=== PATIENT | female | born 1990 | race Caucasian/White ===

== ENCOUNTER 2023-10-12 07:51 | Outpatient (CLI) | payer BC, SELFPAY ==
[2023-10-12 19:02] LABS: Hematocrit 45.1 % (37.0-47.0); Hemoglobin 13.1 g/dL (12.0-15.0); Mean Corpuscular Hemoglobin 25.9 pg (26-34); Mean Corpuscular Volume 89.1 fl (80-100); Mean Platelet Volume 10.9 fl (7.4-10.4); Platelet Count Result 347 k/mm3 (150-375); Red Blood Count 5.06 M/mm3 (4.2-5.4); Red Cell Distribution Width 16.2 % (11.5-14.5); White Blood Count 10.6 K/mm3 (4.5-10.0)
[2023-10-12 20:12] LABS: Alanine Aminotransferase 21 U/L (6-35); Albumin Level 4.1 g/dL (3.5-5.1); Alkaline Phosphatase 110 U/L (38-126); Anion Gap 7 mmol/L (8-16); Aspartate Amino Transferase 51 U/L (14-36); Bilirubin,Total 0.4 mg/dL (0.2-1.3); Blood Urea Nitrogen 7 mg/dL (7-17); Carbon Dioxide 25 mmol/L (22-30); Chloride 107 mmol/L (98-107); Cholesterol 134 mg/dL (0-200); Estimated Glomerular Filt Rate > 60; Glucose 102 mg/dL (65-110); HDL Direct 31 mg/dL; Sodium 139 mmol/L (137-145); Triglycerides 81 mg/dL (<150)
[2023-10-12 20:23] LABS: LDL Cholesterol Direct 94 mg/dL
[2023-10-12 21:28] LABS: Hemoglobin A1C 5.6 % (<5.7)
== END 2023-10-12 07:52 | disposition home or self-care (01) ==
LOC: ANHBWCLAB 07:53
PROVIDERS: PCP Nurse Practitioner Adult Health; Visit Provider Nurse Practitioner Adult Health
DX: Z13.9 Encounter for screening, unspecified (principal); E66.9 Obesity, unspecified
CPT/HCPCS: 36415; 80053; 80061; 83036; 84443; 85027

== ENCOUNTER 2025-02-08 09:28 | Emergency (ER) | payer OTHER, SELFPAY ==
[2025-02-08 09:34] VITALS: BP 111/75; PULSE 75; RESP 18; TEMP 36.9; O2SAT 100
--- OUTSIDE RECORDS SUMMARY | 2025-02-08 09:41 | XMS_ITS ---
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 Name Role Phone Gonzales Alex Unavailable [phone] Allergies Allergen (clinical drug ingredient) Drug/Non Drug Allergy documented on EMR Reaction Allergy Type Onset Date Status codeine Codeine Unknown Drug Allergy Active Penicillin Unknown Drug Allergy Active Medications Medication SIG (Take, Route, Frequency, Duration) Notes Start Date End Date Status Carvedilol 6.25 MG 1 tablet with food O rally Twice a day Unknown PROzac 20 MG 1 capsule Orally Onc e a day Unknown buPROPion HCl ER (XL) 150 MG 1 tablet in the morning Orally Once a day Unknown Vital Signs Temperature 98.6 degrees Fahrenheit 02/02/20 25 Blood pressure systolic 130 mm Hg 02/02/20 25 Blood pressure diastolic 83 mm Hg 025 Heart Rate 76 /min 02/01/2025 Height 63 in 02/01/2025 Weight 246 lbs 02/01/2025 BMI 43.57 kg/m2 02/01/2025 Oximetry 97 % 02/01/2025 Height-cm 160.02 cm 02/01/2025 Weight-kg 111.58 kg 02/01/2025 Encounters Encounter Location Date Provider Diagnosis [facility] [address] [place], [place] [id number] 02/01/2025 Alex Gonzales Vitamin deficiency, unspecified E56.9 ; Class 3 obesity E66.813 ; Other specified personal risk factors, not elsewhere classified Z91.89 ; S/P bariatric surgery Z98.84 ; Postoperative intestinal malabsorption K91.2 and PCOS (polycystic ovarian syndrome) E28.2 Assessments Encounter Date Diagnosis (ICD Code) Assessment Notes Treatment Notes Treatment Clinical Notes Section Notes 02/01/2025 Vitamin deficiency, unspecified (ICD-10 - E56.9) 02/01/2025 Class 3 obesity (ICD-10 - E66.813) 02/01/2025 Other specified personal risk factors, not elsewhere classified (ICD-10 - Z91.89) 02/01/2025 S/P bariatric surgery (ICD-10 - Z98.84) 02/01/2025 Postoperative intestinal malabsorption (ICD-10 - K91.2) 02/01/2025 PCOS (polycystic ovarian syndrome) (ICD-10 - E28.2) Plan Of Treatment Pending Test Test Name Order Date IRON, TIBC AND FERRITIN PANEL (5616) COMPREHENSIVE METABOLIC PANEL (52348) CBC (H/H, RBC, INDICES, WBC, PLT) (1759) 02/01/2025 HEMOGLOBIN A1c (496) 02/01/2025 VITAMIN B12/FOLATE, SERUM PANEL (7065) 0 02/01/2025 TSH (899) 02/01/2025 VITAMIN D,25-OH,TOTAL,IA (71283) 025 ZINC (945) 02/01/2025 VITAMIN B1 (THIAMINE), SERUM/PLASMA, LC/ MS/MS (96328) 02/01/2025 Next Appt Details Follow Up: 3 Months, Reason: Procedure Notes * Category Sub-Category Detail Notes Post Operative Plan Education: Emphasized e xercise and activity expectations; goal of 10,000 steps/day & 150 active min/wk. Reiterated importance of drinking at least 64 oz fluid & taking in at least 60-90g protein daily: . Patient understands the rich y postop vitamin requirements: MVI, calcium + Vit D (1,500IU), folate 100mg, and any other vitamin supplements as needed based on laboratory monitoring. Reviewed appropriate eating habits and food choices: . Reminded patient that surger y is not a magic fix for weight loss: it is hard work and requires many behavioral changes to be successful. Encouraged patient follow with their PCP regularly, especially regarding medication changes: ; to see a counselor if mental health concerns arise; and continue to follow-up with bariatric slide fasteners inspector. There are no barriers to education today: . DISPOSITION: Return in: months for follo w-up visit. Patient also instructed to h jacqueline repeat labs drawn prior to next postop follow-up visit; orders placed: CBC w/diff, CMP, Vit B1, Folate, Vit B12, iron/TIBC, lipid panel, 25-Hydroxy, HbA1C, zinc. The patient is encouraged to call the clinic with any questions or concerns in the meantime. The patient demonstrates understanding and is amendable to the above outlined plan: . Progress Notes * PORFIRIO ShellieDOB: 2 (34 yo F)Acc No.[id number]:02/01/2025 Patient: Shellie HARRY Provider: Olesya Gonzales DO :1990 A ge:34 Y S ex:Female Date:02/01/2025 Address:[address] [place] [address] [id number] Subjective: * Chief Complaints: * * HPI: H istory of Present Illness: Visit: T kristel since surgery: 4 MONTHS - S urgical Procedure: R oux-en-Y Gastric Bypass D ate of Surgery: 0 09/26/2024 Interval History: T kristin patient is a f emale presenting for bariatric postoperative follow-up. Since our last follow- up, kellee curran been taking bariatric vitamins and kellee curran not had bariatric vitamin labs drawn. > INTERVAL ISSUES/CONCERNS: n one H as patient been admitted to the hospital??No H as patient undergone any post-bariatric surgical operations or interventions? N o P re-surgical Weight: 3 08 lb L ast Visit Weight: l b T TODD'S WEIGHT: 2 46 lb T otal Weight Loss (TBW): 6 2 lb % TBW Lost: 2 0.1 % > Daily fluid/water intake = 4 0-60 ounces > Protein Intake is a dequate > Physical Activity: W alking less than 10,000 steps/day COMORBIDITY EVALUATION : AMANDA No GERD No Hypertension Yes - c arvedilol (Coreg) Hyperlipidemia No Diabetes No - Prediabetes VTE No Is Patient attending any support groups E ncouraged attendance . Does patient take any medications for weight loss? - N o * ROS: G eneral / Constitutional: Chills d enies. F ever d enies. A llergy / Immunology: Blistering skin d enies. H EENT: Difficulty in swallowing d enies. N ami congestion?denies. E ndocrine: Cold intolerance d enies. E xcessive thirst d enies. R espiratory: Chest pain d enies. C ough d enies. ? C ardiovascular: Chest pain d enies. P alpitations d enies. W eakness d enies. G astrointestinal: Abdominal pain d enies. D iarrhea d enies. J aundice d enies. R ectal bleeding d enies. G enitourinary: Blood in the urine d enies. D ifficulty urinating d enies. M usculoskeletal: Limping gait d enies. W eakness d enies. B urning pain in lower legs d enies. P sychiatric: Auditory / visual hallucinations d enies. S ubstance abuse d enies. S uicidal thoughts d enies. R eview of Systems: Fever/Chills: N o. E levated HR: N o. B loating/hiccups: N o. S OB/cough/wheezing: N o. L ower extremity pain or swelling: N o.?Decreased UOP: N o. B owel function N ormal BMs without complaint. ? * Medical History: A nxiety, Depression, Prediabetes, PCOS, Hypertension, Pulmonary embolism (09/2022), Migraine headaches, Morbid obesity. * Surgical History: c esarean section , tonsillectomy-adenoidectomy , Esophagogastroduodenoscopy(EGD) w Alex Gonzales DO at [facility] 08/26/2024, Alex Gonzales DO LAPAROSCOPIC GASTRIC BYPASS 09/26/2024. * Medications: U nknown Carvedilol 6.25 MG Tablet 1 tablet with food Orally Twice a day , Unknown buPROPion HCl ER (XL) 150 MG Tablet Extended Release 24 Hour 1 tablet in the morning Orally Once a day , Unknown PROzac 20 MG Capsule 1 capsule Orally Once a day * Allergies: C odeine, Penicillin. Objective: * Vitals: W t:246, Ht:63, BMI:43.57, Oxygen sat %:97, HR:76, BP:130/83, Temp:98.6, Wt- k.58, Ht-cm:160.02, Body Surface Area:2.23. Past Vitals:* 11/24/2024 Wt:258, BMI:45.7, BP:114/81 * 10/06/2024 Wt:275, BMI:48.71, BP:111/80 * 09/01/2024 Wt:301, BMI:53.31, BP:126/71 * 09/01/2024 Wt:301, BMI:53.31, BP:126/71 * 08/03/2024 Wt:303, BMI:53.67, BP:134/82 * Examination: P hysical Exam: General: W ell-developed a dult in no acute distress Head: A traumatic, normocephalic . Neck: S upple, trachea midline. No cervical lymphadenopathy . Chest: Unlabored breathing without respiratory distress Heart: Normal rate and regular rhythm Abdomen: Soft, non-tender, Bowel sounds normal, No masses, no organomegaly Extremities: Warm and well perfused Psych G ood insight, good judgement, appropriate affect . Integumentary: W arm and dry . R eviewed any recent lab &/or imaging results w ith patient during visit today. Assessment: * Assessment: 1. C lass 3 obesity - E66.813 (Primary) 2 . V itamin deficiency, unspecified - E56.9 3 . O ther specified personal risk factors, not elsewhere classified - Z91.89 4 . S /P bariatric surgery - Z98.84 5 . P ostoperative intestinal malabsorption - K91.2 6 . P COS (polycystic ovarian syndrome) - E28.2 Plan: * Treatment: 2. O ther specified personal risk factors, not elsewhere classified L AB: IRON, TIBC AND FERRITIN PANEL (5616) L AB: COMPREHENSIVE METABOLIC PANEL (28537) L AB: CBC (H/H, RBC, INDICES, WBC, PLT) (1759) L AB: HEMOGLOBIN A1c (496) L AB: VITAMIN B12/FOLATE, SERUM PANEL (7065) L AB: TSH (899) L AB: VITAMIN D,25-OH,TOTAL,IA (58770) L AB: ZINC (945) L AB: VITAMIN B1 (THIAMINE), SERUM/PLASMA, LC/MS/MS (32209) 3. S /P bariatric surgery L AB: IRON, TIBC AND FERRITIN PANEL (5616) L AB: COMPREHENSIVE METABOLIC PANEL (28089) L AB: CBC (H/H, RBC, INDICES, WBC, PLT) (1759) L AB: HEMOGLOBIN A1c (496) L AB: VITAMIN B12/FOLATE, SERUM PANEL (7065) L AB: TSH (899) L AB: VITAMIN D,25-OH,TOTAL,IA (03240) L AB: ZINC (945) L AB: VITAMIN B1 (THIAMINE), SERUM/PLASMA, LC/MS/MS (56792) 4. P ostoperative intestinal malabsorption L AB: IRON, TIBC AND FERRITIN PANEL (5616) L AB: COMPREHENSIVE METABOLIC PANEL (44342) L AB: CBC (H/H, RBC, INDICES, WBC, PLT) (1759) L AB: HEMOGLOBIN A1c (496) L AB: VITAMIN B12/FOLATE, SERUM PANEL (7065) L AB: TSH (899) L AB: VITAMIN D,25-OH,TOTAL,IA (86047) L AB: ZINC (945) L AB: VITAMIN B1 (THIAMINE), SERUM/PLASMA, LC/MS/MS (67786) * Procedures: P ost Operative Plan: Education: E mphasized exercise and activity expectations; goal of 10,000 steps/day & 150 active min/wk. Reiterated importance of drinking at least 64 oz fluid & taking in at least 60-90g protein daily . P atient understands the daily postop vitamin requirements: MVI, calcium + Vit D (1,500IU), folate 100mg, and any other vitamin supplements as needed based on laboratory monitoring. Reviewed appropriate eating habits and food choices . R eminded patient that surgery is not a magic fix for weight loss: it is hard work and requires many behavioral changes to be successful. Encouraged patient follow with their PCP regularly, especially regarding medication changes ; t o see a counselor if mental health concerns arise; and continue to follow-up with bariatric slide fasteners inspector. There are no barriers to education today . DISPOSITION: Page calhoun in [facility] for follow-up visit. P atient also instructed to have repeat labs drawn prior to next postop follow-up visit; orders placed: CBC w/diff, CMP, Vit B1, Folate, Vit B12, iron/TIBC, lipid panel, 25-Hydroxy, HbA1C, zinc. The patient is encouraged to call the clinic with any questions or concerns in the meantime. The patient demonstrates understanding and is amendable to the above outlined plan . * Follow Up: 3 Months * Billing Information: * Visit Code: 56411 Office Visit, Est Pt., Level 4. * Procedure Codes: * Electronic signature of Cash fostermaricel Gonzales DO, [phone] on 02/08/2025 at 09:41 AM CDT Sign off status: Pending * Provider: Olesya Gonzales DO Date: 02/01/2025 Generated for Torrie sun/Ayan/Indu on: 02/08/2025 09:41 AM CDT History and Physical Notes * HPI (History of Present Illness) Category Sub-Category Detail Notes Category Not es History of Present Illness Visit: Time since surgery:: 4 MONTHS - Surgical Procedure:: Asaf-en-Y Gastric B ypass Date of Surgery:: 09/26/2024 Interval History: The patient is a: female prese ing for bariatric postoperative follow-up. Since our last follow-up, they: have been taking bariatri c vitamins and they: have not had bariatric vitami n labs drawn. > INTERVAL ISSUES/CONCERNS:: none Has patient [facility] the [facility]?: No Has patient undergone any po st-bariatric surgical operations or interventions?: No Pre-surgical Weight:: 308 lb Last Visit Weight:: lb TODAY'S WEIGHT:: 246 lb Total Weight Loss (TBW):: 62 lb %TBW Lost:: 20.1 % > Daily fluid/water intake =: 40-60 ounc es > Protein Intake is: adequate > Physical Activity:: Walkin g less than 10,000 steps/day COMORBIDITY EVALUATION : AMANDA No GERD No Hypertension Yes -: carvedilol (Coreg) Hyperlipidemia No Diabetes No - Prediabetes VTE No Is Patient attending any support groups Encourag ed attendance: . Does patient take any medications for weight los s? -: No Examination Category Sub-Category Detail Notes Category Not es Physical Exam General: Well-developed: adult in no acute distress Reviewed any recent lab &/or imaging results with patient during visit today. Chest: Unlabored breath ing without respiratory distress Abdomen: Soft, non-tender, Papito wel sounds normal, No masses, no organomegaly Extremities: Warm and well perfused Heart: Normal rate and regular rhythm Psych Good insight, good j udgement, appropriate affect: . Integumentary: Warm and dry: . Head: Atraumatic, normocephalic: . Neck: Supple, trachea midl ine. No cervical lymphadenopathy: .
--- OUTSIDE RECORDS SUMMARY | 2025-02-08 09:41 | XMS_ITS | Referral Summary ---
Author Organization [facility] Address [facility] [place] [address] Care Team Providers Care Bag Filler Machine Operator Name Role Phone Santa Mcgovern MD Primary Care Provider [phone] Allergies Active Allergy Reactions Criticality Noted Date Comments Codeine Other (See comments) Low insomnia Penicillins Shortness of breath High Medications DHA 200 mg capsule Take by mouth daily 2 Active polyethylene glycol (MIRALAX) 17 gram packetIndicatio ns:constipation Take 1 packet (17 g total) by mouth daily as needed for constipation 30 packet 1 3 Active furosemide (LASIX) 20 mg tablet Take 2 tablets (40 mg total) by mouth daily for 15 days 30 tablet 3 Active FLUoxetine (PROzac) 20 mg capsule TAKE 1 CAPSULE BY MOUTH EVERY DAY 90 capsule 1 4 Active carvediloL (COREG) 6.25 mg tablet Take 1 tablet (6.25 mg total) by mouth 2 (two) times a day with meals 60 tablet 11 4 Active Hospital, Clinic, or Other Facility Administered Medication Ordered Dose Route Frequency Start Date End Date Status etonogestreL (NEXPLANON) implant 68 mgIndications:Pregna ncy Contraception 68 mg subderm Continuous (implanted device) 03/02/2023 03/01/2026 Active Active Problems Problem Noted Date Diagnosed Date History of pre-eclampsia 11/19/2022 Anxiety and depression 11/19/2022 Cardiac risk counseling 10/22/2022 Resolved Problems Problem Noted Date Diagnosed Date Resolved Date Pre-eclampsia in third trimester 10/22/2022 11/19/2022 care following delivery 10/10/2022 11/19/2022 Overview (10/14/2022): # ID: Afebrile. No signs/symptoms of infection. #COVID-19: Test not indicated # Heme: EBL 1000 mL. No symptoms acute blood loss anemia, hgb 11.9 > 9.1 > 7.6 > 8.1 . Received IM OT, hemabate x2 and rectal miso intraop. Lochia wnl. # CV/Pulm: #Pre-eclampsia with severe features: Magnesium sulfate paused in labor given rising Cr. Trending JULIANNE below. Blood pressures normotensive to MR , will continue 60mg nifedipine XL. Enrolled in home BP monitoring. #WOODY subsegmental PE vs artifact: Remains tachycardic with significant bilateral lower extremity edema. Normal BNP and EKG. CT PE with potential subsegmental PE vs artifact. Following discussion with patient elects for treatment with therapeutic lovenox, started 10/12 PM. Dopplers without evidence of DVT. # GI/: Tolerating PO. Voiding spontaneously. #JULIANNE: Cr elevated in the setting of PreESF, peak 1.63. Cr POD3 0.86. # Pain: Controlled with above regimen. Will add gabapentin 100 mg TID for incisional neuropathic pain # Post DVT prophylaxis: The patient has the following MAJOR risk factors BMI >/= 40 and the following MINOR risk factors delivery and preeclampsia. 10/12: Started on therapeutic lovenox, plan to discharge on lovenox for total duration of therapy for 3-6 months. # MOC: Declines s/p counseling # MOF: Undecided. Urine drug screen not indicated. Patient informed of results: N/A. # COVID Vaccination Status: Previously received # Disposition: Follow up task sent to [facility] scheduling pool. Task also sent for [facility] clinic. Continue routine care. Consider discharge today. Encounter for elective induction of labor 10/08/2022 11/19/2022 Overview (10/08/2022): Shellie Gutierrez is a 32 y.o. female at 37w3d who is dated by L=1 and is being admitted for an induction of labor secondary to gHTN. 1. Admit to L&D: Consents signed and placed in chart. Labs: CBC and T&S pending. Induction of labor with miso. 2. FWB: Continuous monitoring. Reactive NST 3. ID: 3rd trimester HIV (>28 wga) negative on 10/02/22. GBS unknown, records requested but not yet visualized. Per pt, was told by her primary OB that she was GBS negative; additionally, no risk factors for GBS, will defer PCN. RPR on admission: pending. Membrane Status: intact. 4. Indications for UDS: none. Verbal consent obtained for UDS: Not indicated 5. MOF: Undecided on feeding method. Urine drug screen not indicated. Patient informed of results: N/A 6. MOC: Declines 7. Pain management: Desires epidural when feeling painful contractions. 8. Post DVT prophylaxis: The patient has the following MAJOR risk factors BMI >/= 40 and the following MINOR risk factors none. enoxaparin 40 mg BID will be ordered for VTE prophylaxis . 9. COVID Vaccine Status: Not assessed 10. COVID Test Status: Test not indicated complications: #gHTN: SRBP x1, not yet meeting criteria for preE, CBC/CMP/UPC sent on admission. Most recent labs on 10/02: UPC 0.21, CBC/CMP wnl. #MO: BMI 62 #LGA fetus: most recent Dionisio on 10/02 with fetus at 97% #anxiety: on no meds Gestational hypertension, third trimester 10/03/2022 11/19/2022 Overview (10/08/2022): Patient reports 10/01 having a severe range BP at her primary's office with a normal repeat- records requested 10/02 in clinic patient had 2 mild range Bps- sent to [facility] for r/o preE and discharged home 10/08/2022 162/84 Plan: - Instructed to present to [facility]/L&D for delivery, rule out preeclampsia Excessive growth affec ting management of in third trimester 09/02/2022 11/20/19 Overview (10/08/2022): 09/02/2022 96% 10/02/2022 97%, 3655g S/p normal 1 hour, s/p normal accu check in clinic Constipation 05/19/2022 11/19/2022 Overview (05/19/2022): Reglan, limit zofran Colace Miralax Maternal morbid obesity in t hird trimester, antepartum 05/16/2022 11/19/2022 Overview (10/08/2022): BMI 57 > 62 10/08/2022 Plan: - Serial growth ultrasounds every 4 weeks - S/p anesthesia consult 09/02/2022 - Planning delivery at [facility] for BMI >50 Maternal varicella, non-immune 05/16/2022 11/19/2022 Supervision of high-risk pre gnancy, third trimester 05/16/2022 11/19/2022 Overview (10/08/2022): [x] Co-management [x] Blue Team Email for the [employer] sent 08/07/22 Referring Provider: Dwain Muhammad [phone] [] or Medicare Insurance [x] Dating Criteria: [place] 03/03/22 with CHUY 10/26/22 [x] Labs: Rh [A+], Ab [negative], Rubella [immune], HIV [non-reactive], HepBSAg [negative], RPR [non-reactive], Hep C [negative], Varicella [non- immune], GC/CT [negative/negative] [x] Genetic Screening: CF negative [x] CBC/Hgb 13.9/40.7/plt 316 [x] UCx: 04/03/22 negative [x] Pap: 04/03/22 NILM; HPV negative [] LD ASA (if indicated) starting at 12 weeks: [] EPDS [ ]; PNBHS referral (if indicated) 2nd Tri Labs: [x] Anatomy ultrasound: incomplete 06/09/22 [x] CBC/1hr gtt at 24-28wks: CBC: 11.9/37.2/310, 1 hr gtt: 128 on 07/29/22 [x] Flu Shot (Mar-Jun): declines 08/07/22 [x] Tdap (27-36wks): cheri beal [x] COVID Vaccine: received 09/30/20 and 10/22/20, declines booster 08/07/22 3rd Tri Labs: [x] CBC/HIV/RPR: on 10/02, 11.4/35.9/297, HIV: Neg, RPR: NR [] GBS: reports collected with primary on 09/24 - not yet received records 10/08/2022 [x] testing: Recommend weekly testing at 34 weeks (prepregnancy BMI >40) Counseling [x] MOD: Anticipate at 39w0d- will discuss dates with partner and notify MFOlesya RN -scheduled for 10/19 at 8pm, letter sent - bnw [x] Place of delivery: [facility] [] Last clinic visit SVE: [] IOL start agent: [] Epidural: [] Consents signed: [] MOC: [] Method of feeding: [] Pickle Pumper: [] PP Depression Discussed: Anxiety disorder affecting p regnancy, antepartum 05/16/2022 11/19/2022 Immunizations Immunization Administration Dates Next Due Tdap 03/06/2008 Social History Tobacco Use Types Packs/Day Years Used Date Smoking Tobacco: Never Smokeless Tobacco: Never Tobacco Cessation:Counseling Given: Not Answered Alcohol Use Standard Drinks/Week Comments Yes 0 (1 standard drink = 0.6 oz pur e alcohol) Social Connection and Isolat ion Panel [NHANES] Answer Date Recorded In a typical week, how many times do you talk on the phone with family, friends, or neighbors? More than three times a week 10/13/2022 How often do you get togethe r with friends or relatives? Three times a week 10/13/2022 How often do you attend chur ch or sikh services? Never 10/13/2022 Do you belong to any clubs o r organizations such as bahai groups, unions, fraternal or athletic groups, or school groups? No 10/13/2022 How often do you attend meet ings of the clubs or organizations you belong to? Never 10/13/2022 Are you , , di vorced, , never , or living with a partner? Living with partner 10/13/2022 AUDIT-C Answer Date Recorded Q1: How often do you have a drink containing alc ohol? Monthly or less 03/02/2023 Q2: How many drinks containi ng alcohol do you have on a typical day when you are drinking? 1 or 2 03/02/2023 Frequency of Binge Drinking Not on file 02/17 Overall Financial Resource Strain (CARDIA) Answe r Date Recorded How hard is it for you to pa y for the very basics like food, housing, medical care, and heating? Not hard at all 10/13/2022 Hunger Vital Sign Answer Date Recorded Within the past 12 months, y ou worried that your food would run out before you got the money to buy more. Never true 10/14/19 23 Within the past 12 months, t he food you bought just didn't last and you didn't have money to get more. Never true 10/13/2022 PRAPARE - Transportation Answer Date Re corded In the past 12 months, has l ack of transportation kept you from medical appointments or from getting medications? No 09/18 In the past 12 months, has l ack of transportation kept you from meetings, work, or from getting things needed for daily living? No 10/13/2022 Housing Stability Vital Sign Answer Oli e Recorded In the last 12 months, was t here a time when you were not able to pay the mortgage or rent on time? No 10/13/2022 In the last 12 months, how many places have you lived? 1 10/13/2022 In the last 12 months, was t here a time when you did not have a steady place to sleep or slept in a half-way (including now)? No 10/13/2022 [place] Depression Scale Answer Date Recorded [place] Depression Scale Total 10 11/19/2022 The thought of harming myself has occurred to me . Never 11/19/2022 Personal Safety Answer Date Recorded Have you ever been in or are you currently in a harmful physical or emotional relationship or is someone making you feel afraid or unsafe? 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 - [employer] Not on file Not on f ile Not on file Last Filed Vital Signs Vital Sign Reading Time Taken Comments Blood Pressure 129/90 06/04/2023 10:34 AM CARDIAC EXERCISE SPECIALIST Pulse 116 11/19/2022 11:39 AM CDT Temperature 36.6 C (97.8 F) 11/03/2022 5:51 PM CDT Respiratory Rate 16 11/03/2022 5:51 PM CDT Oxygen Saturation 98% 11/19/2022 11:39 AM CDT Inhaled Oxygen Concentration - - Weight 142.4 kg (314 lb) 06/04/2023 10:34 AM CARDIAC EXERCISE SPECIALIST Height 162.6 cm (5' 4) 06/04/2023 10:34 AM CARDIAC EXERCISE SPECIALIST Body Mass Index 53.9 06/04/2023 10:34 AM CARDIAC EXERCISE SPECIALIST Plan of Treatment Not on file Procedures Procedure Name Priority Date/Time Associated Diagnosis Comments HEPATITIS C ANTIBODY Routine 04/03/2022 from Last 3 Months or Most Recently Relevant to Health Maintenance Results * Hepatitis C antibody (04/03/2022) SCRIBED HCV ab negative Blood Dwain Muhammad MD LAB MICROBIOLOGY - GEN ERAL ORDERABLES Final Result from Last 3 Months or Most Recently Relevant to Health Maintenance Insurance [facility] Advance Directives For more information, please contact: [phone] * Full Code (Latest Code Status on File) Date Activated Date Inactivated Comments 10/10/2022 9:05 PM 10/14/2022 4:44 PM * Full Code Date Activated Date Inactivated Comments 10/08/2022 5:27 PM 10/10/2022 9:05 PM Full CPR in case of cardiopulmonary arrest Care Teams Bag Filler Machine Operator Relationship Specialty Start Date End Date Santa Mcgovern MD PCP - General Internal Medicine 06/21/18
--- OUTSIDE RECORDS SUMMARY | 2025-02-08 09:41 | XMS_ITS ---
Author Organization [facility] Address [address] [facility] [address] [place], [place] [id number] Care Team Providers Care Brimmer Blocker Name Role Phone Alex Gonzales DO Unavailable [phone] Shell Davidson Unavailable [phone] REASON FOR VISIT told her $50 for last inserter Medications Medication SIG (Take, Route, Frequency, Duration) Notes Start Date End Date Status PROzac 20 MG 1 capsule Orally Onc e a day Unknown buPROPion HCl ER (XL) 150 MG 1 tablet in the morning Orally Once a day Unknown Carvedilol 6.25 MG 1 tablet with food O rally Twice a day Unknown Encounters Encounter Location Date Provider Diagnosis [facility] [address] [facility] [address] [place], [place] [id number] 02/01/2025 Shell Davidson Plan Of Treatment No Information Progress Notes * BARTONShellieDOB: 2 (34 yo F)Acc No.[id number]:02/01/2025 Patient: Shellie HARRY Provider: Haylie Davidson RD, LD :1990 A ge:34 Y S ex:Female Date:02/01/2025 Address:[address] [place], [place] [id number] Subjective: * Chief Complaints: * 1 . Told her $50 for last inserter. * Medical History: * Medications: U nknown Carvedilol 6.25 MG Tablet 1 tablet with food Orally Twice a day , Unknown buPROPion HCl ER (XL) 150 MG Tablet Extended Release 24 Hour 1 tablet in the morning Orally Once a day , Unknown PROzac 20 MG Capsule 1 capsule Orally Once a day Objective: * Vitals: Past Vitals:* 11/24/2024 Wt:258, BMI:45.7, BP:114/81 * 10/06/2024 Wt:275, BMI:48.71, BP:111/80 * 09/01/2024 Wt:301, BMI:53.31, BP:126/71 * 09/01/2024 Wt:301, BMI:53.31, BP:126/71 * 08/03/2024 Wt:303, BMI:53.67, BP:134/82 Assessment: Plan: * Treatment: * Billing Information: * Visit Code: * Procedure Codes: * Electronic signature of Randy Byers RD, LD on 02/08/2025 at 09:41 AM CDT Sign off status: Pending * Provider: Haylie Davidson RD, LD Date: 02/01/2025 Generated for Torrie sun/Ayan/Indu on: 02/08/2025 09:41 AM CDT
--- OUTSIDE RECORDS SUMMARY | 2025-02-08 09:41 | XMS_ITS | Clinical Summary ---
Author Organization [facility] Address [address] [place] [phone] Phone Care Team Providers Care Welding Technician Name Role Phone Unavailable Primary Care Provider Unavailabl e Allergies Active Allergy Reactions Criticality Noted Date Comments Codeine Other (See Comments) 08/09/2024 Insomnia for days Penicillins Hives High 08/09/2024 Medications FLUoxetine (PROzac) 20 mg capsule Take 20 mg by mouth daily. Active carvediloL (COREG) 6.25 mg tablet Take 6.25 mg by mouth 2 times daily. 4 Active etonogestreL (NEXPLANON) 68 mg Implant Inject 68 mg by subcutaneous injection one time only. 3 03/01/20 26 Active docusate sodium (COLACE) 100 mg capsule Take 1 Capsule (100 mg) by mouth 2 times daily. 30 Capsule 09/27/2024 10:31 AM CDT 5 Active ondansetron (ZOFRAN ODT) 4 mg Tablet, Rapid Dissolve Dissolve 1 tablet on top of tongue, then swallow with saliva every 8 hours as needed for Nausea/Vomiting. 40 Tablet 09/27/2024 10:31 AM CDT 5 Active omeprazole (PriLOSEC) 40 mg Capsule, Delayed Release(E.C.) Take 1 Capsule (40 mg) by mouth daily. Open capsule and pour contents into sugar-free jell-O or other food of similar consistency. 90 Capsule 09/27/2024 10:31 AM CDT 5 Active buPROPion (WELLBUTRIN) 75 mg tablet Take 2 Tablets (150 mg) by mouth 2 times daily. 120 Tablet 09/27/2024 10:31 AM CDT Active Active Problems Problem Noted Date Diagnosed Date Morbid obesity with BMI of 50.0-59.9, adult 09/17 Encounters Date Type Department Care Team Description 02/01/2025 External Device Data [facility] ABSTRACTION Provider, Abstract 01/31/2025 External Device Data [facility] ABSTRACTION Provider, Abstract 01/10/2025 External Device Data [facility] ABSTRACTION Provider, Abstract 01/10/2025 External Device Data [facility] ABSTRACTION Provider, Abstract 12/08/2024 External Device Data [facility] ABSTRACTION Provider, Abstract 12/08/2024 External Device Data [facility] ABSTRACTION Provider, Abstract 12/08/2024 External Device Data [facility] ABSTRACTION Provider, Abstract 12/07/2024 External Device Data [facility] ABSTRACTION Provider, Abstract 12/07/2024 External Device Data [facility] ABSTRACTION Provider, Abstract 12/06/2024 External Device Data [facility] ABSTRACTION Provider, Abstract 11/22/2024 External Device Data [facility] ABSTRACTION Provider, Abstract from Last 3 Months Family History Medical History Relation Name Comments Colon Cancer Neg Hx Social History Tobacco Use Types Packs/Day Years Used Date Smoking Tobacco: Never Smokeless Tobacco: Never Tobacco Cessation:Counseling Given: Not Answered Alcohol Use Standard Drinks/Week Comments Yes 0 (1 standard drink = 0.6 oz pur e alcohol) once a year Comments No Sex and Gender Information Value Date Recorded Sex Assigned at Not on file Legal Sex Female 8:56 AM UROLOGY PHYSICIAN Gender Identity Not on file Sexual Orientation Not on file Last Filed Vital Signs Vital Sign Reading Time Taken Comments Blood Pressure 118/67 09/27/2024 7:13 AM CDT Pulse 84 09/27/2024 7:13 AM CDT Temperature 36.7 C (98.1 F) 09/27/2024 7:13 AM CDT Respiratory Rate 18 09/27/2024 7:13 AM CDT Oxygen Saturation 94% 09/27/2024 7:13 AM CDT Inhaled Oxygen Concentration - - Weight 133.4 kg (294 lb 1.5 oz) 025 10:26 AM CDT Height 162.6 cm (5' 4) 09/26/2024 10:2 6 AM CDT Body Mass Index 50.48 09/26/2024 10:26 AM CDT Plan of Treatment Health Maintenance Due Date Last Done Comments HEPATITIS B VACCINES (1 of 3 - 19+ 3-dose series) 2011 HPV/Cotest (21-29) 2013 DTAP/TDAP/TD VACCINES (2 - T d or Tdap) 03/06/2018 03/06/2008 CERVICAL CANCER SCREENING 2022 HPV/Cotest (30-65) 2022 PAP SMEAR 2022 INFLUENZA VACCINE (#1) 2025 HPV VACCINES Aged Out No longer eligi ble based on patient's age to complete this topic Insurance [facility] [id number] [employer] PLANS (INTERNAL) [facility] Advance Directives For more information, please contact: [phone] * Full Code (Latest Code Status on File) Date Activated Date Inactivated Comments 09/26/2024 10:12 AM 09/27/2024 12:40 PM * Full Code Date Activated Date Inactivated Comments 09/26/2024 6:00 AM 09/26/2024 10:12 AM * Full Code Date Activated Date Inactivated Comments 08/26/2024 1:14 PM 08/26/2024 4:40 PM
--- OUTSIDE RECORDS SUMMARY | 2025-02-08 09:41 | XMS_ITS | Patient Health Record ---
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 Name Role Phone Alex Gonzales DO Unavailable [phone] Vinnie VILLARREAL, Dary Unavailable [phone] Baljit Dickson PA-C Unavailable Shell Davidson Unavailable [phone] Allergies Allergen (clinical drug ingredient) Drug/Non Drug Allergy documented on EMR Reaction Allergy Type Onset Date Status codeine Codeine Unknown Drug Allergy Active Penicillin Unknown Drug Allergy Active Reason For Referral No Information Medications Medication SIG (Take, Route, Frequency, Duration) Notes Start Date End Date Status Carvedilol 6.25 MG 1 tablet with food O rally Twice a day Unknown PROzac 20 MG 1 capsule Orally Onc e a day Unknown buPROPion HCl ER (XL) 150 MG 1 tablet in the morning Orally Once a day Unknown Problems Problem Type SNOMED Code ICD Code Onset Dates Problem Status W/U Status Risk Notes Problem Vitamin deficiency (73460225) Vitamin deficiency, unspecified (E56.9) Active confirmed Problem Morbid obesity (disorder) (672683055) Morbid (severe) obesity due to excess calories (E66.01) Active confirmed Problem Body mass index 40+ - morbidly obese (736090145) Body mass index [BMI] 50.0-59.9, adult (Z68.43) Active confirmed Problem Essential hypertension (56752114) Essential hypertension (I10) Active confirmed Problem Postoperative intestinal malabsorption (K91.2) Active confirmed Problem Polycystic ovary syndrome (disorder) (994558313) PCOS (polycystic ovarian syndrome) (E28.2) Active confirmed Problem History of pulmonary embolus (805118487) History of pulmonary embolus (PE) (Z86.711) Active confirmed Problem Class 3 obesity (E66.813) Active confirmed Vital Signs Heart Rate 76 /min 02/01/2025 Temperature 98.6 degrees Fahrenheit 02/01/2025 Height-cm 160.02 cm 02/01/2025 Blood pressure diastolic 83 mm Hg 02/01/2025 Oximetry 97 % 02/01/2025 Weight-kg 111.58 kg 02/01/2025 Height 63 in 02/01/2025 Blood pressure systolic 130 mm Hg 02/01/2025 Weight 246 lbs 02/01/2025 BMI 43.57 kg/m2 02/01/2025 Procedures Procedure Date Ordered Date Performed Result Body Sit e ESOPHAGOGASTRODUODENOSCOPY 08/03/2024 N/A Encounters Encounter Location Date Provider Diagnosis [facility] [address] [id number] 02/01/2025 Shell Davidson [facility] [address] [id number] 02/01/2025 Alex Gonzales Vitamin deficiency, unspecified E56.9 ; Class 3 obesity E66.813 ; Other specified personal risk factors, not elsewhere classified Z91.89 ; S/P bariatric surgery Z98.84 ; Postoperative intestinal malabsorption K91.2 and PCOS (polycystic ovarian syndrome) E28.2 [facility] [address] [id number] 08/03/2024 Alex Gonzales History of pulmonary embolus (PE) Z86.711 ; Class 3 obesity E66.813 ; Gastro-esophageal reflux disease without esophagitis K21.9 ; Prediabetes R73.03 ; PCOS (polycystic ovarian syndrome) E28.2 and BMI 50.0-59.9, adult Z68.43 [facility] [address] [id number] 08/03/2024 Dary [place] Dietary counseling and surveillance Z71.3 and BMI 50.0-59.9, adult Z68.43 [facility] [address] [id number] 09/01/2024 Baljit Dickson Class 3 obesity E66.813 ; PCOS (polycystic ovarian syndrome) E28.2 ; Essential hypertension I10 ; Chronic depression F32.A and History of pulmonary embolus (PE) Z86.711 [facility] [address] [id number] 09/01/2024 Dary [place] Dietary counseling and surveillance Z71.3 and Body mass index [BMI] 50.0-59.9, adult Z68.43 [facility] [address] [id number] 10/06/2024 Alex Gonzales S/P bariatric surger y Z98.84 ; Class 3 obesity E66.813 ; Vitamin deficiency, unspecified E56.9 ; Other specified personal risk factors, not elsewhere classified Z91.89 and Postoperative intestinal malabsorption K91.2 [facility] [address] [id number] 11/24/2024 Alex Gonzales Vitamin deficiency, unspecified E56.9 ; Obesity, Class III, BMI 40-49.9 (morbid obesity) E66.813 ; Other specified personal risk factors, not elsewhere classified Z91.89 ; S/P bariatric surgery Z98.84 and Postoperative intestinal malabsorption K91.2 [facility] [address] [id number] 08/22/2024 Alex Gonzales [facility] [address] [id number] 08/23/2024 Alex Gonzales [facility] [address] [id number] 09/08/2024 Alex Gonzales [facility] [address] [id number] 09/12/2024 Alex Gonzales [facility] [address] [id number] 09/15/2024 Alex Gonzales [facility] [address] [id number] 09/21/2024 Alex Gonzales [facility] [address] [id number] 10/17/2024 Alex Garcia [facility] [address] [place], [place] [id number] 10/18/2024 Alex Gonzales Assessments Encounter Date Diagnosis (ICD Code) Assessment Notes Treatment Notes Treatment Clinical Notes Section Notes 08/03/2024 History of pulmonary embolus (PE) (ICD-10 - Z86.711) 08/03/2024 Class 3 obesity (ICD-10 - E66.813) 08/03/2024 Dietary counseling and surveillance (ICD-10 - Z71.3) 08/03/2024 BMI 50.0-59.9, adult (ICD-10 - Z68.43) 09/01/2024 PCOS (polycystic ovarian syndrome) (ICD-10 - E28.2) ESOPHAGOGASTRODU ODENOSCOPY RESULTS: [facility] Patient Name: Shellie Barton Procedure Date: 08/26/2024 Date of : 1990 Attending MD: Alex Gonzales DO, Procedure: Upper GI endoscopy Indications: Heartburn, Preoperative assessment for bariatric surgery to treat morbid obesity Providers: Alex Gonzales DO Referring MD: Medicines: Monitored Anesthesia Care Complications: No immediate complications. Estimated blood loss: Minimal. Procedure: Informed consent was obtained for the procedure, including moderate sedation after risks were discussed. Based on the pre-procedure assessment, including review of the patient's medical history, medications, allergies, and review of systems, the patient was deemed to be an appropriate candidate for sedation. A timeout was performed. Continuous ECG monitoring, pulse oximetry, blood pressure monitoring, and direct observation were performed. The was introduced through the mouth, and advanced to the second part of duodenum. The upper GI endoscopy was accomplished without difficulty. The patient tolerated the procedure well. Estimated Blood Loss: Estimated blood loss was minimal. Findings: The examined esophagus was normal. Localized moderately erythematous mucosa without bleeding was found in the gastric antrum. Biopsies were taken with a cold forceps for Helicobacter pylori testing using CLOtest. Estimated blood loss was minimal. The cardia and gastric fundus were normal on retroflexion. The exam of the stomach was otherwise normal. No gross lesions were noted in the entire examined duodenum. No biopsies or other specimens were collected for this exam. Impression: - Normal esophagus. - Erythematous mucosa in the antrum. Biopsied. - No gross lesions in the entire examined duodenum. No specimens collected. Alex Gonzales DO 08/26/2024 2:02:02 PM 09/01/2024 Class 3 obesity (ICD-10 - E66.813) ESOPHAGOGASTRODU ODENOSCOPY RESULTS: [facility] Patient Name: Shellie Barton Procedure Date: 08/26/2024 Date of : 1990 Attending MD: Alex Gonzales DO, Procedure: Upper GI endoscopy Indications: Heartburn, Preoperative assessment for bariatric surgery to treat morbid obesity Providers: Alex Gonzales DO Referring MD: Medicines: Monitored Anesthesia Care Complications: No immediate complications. Estimated blood loss: Minimal. Procedure: Informed consent was obtained for the procedure, including moderate sedation after risks were discussed. Based on the pre-procedure assessment, including review of the patient's medical history, medications, allergies, and review of systems, the patient was deemed to be an appropriate candidate for sedation. A timeout was performed. Continuous ECG monitoring, pulse oximetry, blood pressure monitoring, and direct observation were performed. The was introduced through the mouth, and advanced to the second part of duodenum. The upper GI endoscopy was accomplished without difficulty. The patient tolerated the procedure well. Estimated Blood Loss: Estimated blood loss was minimal. Findings: The examined esophagus was normal. Localized moderately erythematous mucosa without bleeding was found in the gastric antrum. Biopsies were taken with a cold forceps for Helicobacter pylori testing using CLOtest. Estimated blood loss was minimal. The cardia and gastric fundus were normal on retroflexion. The exam of the stomach was otherwise normal. No gross lesions were noted in the entire examined duodenum. No biopsies or other specimens were collected for this exam. Impression: - Normal esophagus. - Erythematous mucosa in the antrum. Biopsied. - No gross lesions in the entire examined duodenum. No specimens collected. Alex Gonzales DO 08/26/2024 2:02:02 PM 09/01/2024 Dietary counseling and surveillance (ICD-10 - Z71.3) 09/01/2024 Body mass index [BMI] 50.0-59.9, adult (ICD-10 - Z68.43) 10/06/2024 Class 3 obesity (ICD-10 - E66.813) - Diet:Tolerating Pureed diet (Bariatric Phase III) without difficultly.Adva nce to Soft diet (Bariatric Phase IV) diet after 2 weeks .- Activity:Patient now permitted to start cardio exercises such as running, elliptical, etc. Okay to start exercise program with weight-training once 4 weeks out from surgery. Okay to return to work if not already returned .- Education:* Continue to follow-up with bariatric learning support services director/catie brown .* Continue previous medications as prescribed. Continue to crush meds for the first 4 weeks post-op; after, may resume regular formulations. Continue to open up omeprazole capsule for first 3 months. Patient advised to see PCP about medication changes .* Instructions given today to start their vitamins. He understands the post-op vitamin requirements: MVI, calcium (1500mg daily), and supplements for any low vitamin levels PRN as determined by labwork. Daily MVI/calcium should include Vit D 5,000IU & Vit B1 100mg .* Patient counseled on behaviors necessary for weight loss: Discussed in detail the post-op diet progression, appropriate eating habits, fluid requirements, and food choices - advancing diet every 2 weeks until reaching stage 4 .* Discussed physical activity expectations: Goal of 10,000 steps/day and 150 active min/wk. First 9 months after surgery is the best time to make headway on weight loss .* Encouraged to attend support groups. Advised patient to see a counselor and/or PCP if mental health concerns arise .* Get labs drawn as ordered. Get radiology as ordered . - Disposition: Return in approximately 6 weeks for 2-month post-op follow-up visit* Patient has been instructed to have labs drawn prior to 2-month return visit: CBC w/ diff, CMP, Vit B12, Iron/TIBC, Folate, D 25-Hydroxy, HbA1C, Thiamine, Zinc. Orders placed .* The patient is encouraged to call the clinic with any questions or concerns in the meantime. The patient demonstrates understanding and is amenable to the above outlined plan. There are no barriers to education today 11/24/2024 Vitamin deficiency, unspecified (ICD-10 - E56.9) 11/24/2024 Obesity, Class III, BMI 40-49.9 (morbid obesity) (ICD-10 - E66.813) 02/01/2025 Vitamin deficiency, unspecified (ICD-10 - E56.9) 10/06/2024 S/P bariatric surgery (ICD-10 - Z98.84) - Diet:Tolerating Pureed diet (Bariatric Phase III) without difficultly.Adva nce to Soft diet (Bariatric Phase IV) diet after 2 weeks .- Activity:Patient now permitted to start cardio exercises such as running, elliptical, etc. Okay to start exercise program with weight-training once 4 weeks out from surgery. Okay to return to work if not already returned .- Education:* Continue to follow-up with bariatric learning support services director/catie brown .* Continue previous medications as prescribed. Continue to crush meds for the first 4 weeks post-op; after, may resume regular formulations. Continue to open up omeprazole capsule for first 3 months. Patient advised to see PCP about medication changes .* Instructions given today to start their vitamins. He understands the post-op vitamin requirements: MVI, calcium (1500mg daily), and supplements for any low vitamin levels PRN as determined by labwork. Daily MVI/calcium should include Vit D 5,000IU & Vit B1 100mg .* Patient counseled on behaviors necessary for weight loss: Discussed in detail the post-op diet progression, appropriate eating habits, fluid requirements, and food choices - advancing diet every 2 weeks until reaching stage 4 .* Discussed physical activity expectations: Goal of 10,000 steps/day and 150 active min/wk. First 9 months after surgery is the best time to make headway on weight loss .* Encouraged to attend support groups. Advised patient to see a counselor and/or PCP if mental health concerns arise .* Get labs drawn as ordered. Get radiology as ordered . - Disposition: Return in approximately 6 weeks for 2-month post-op follow-up visit* Patient has been instructed to have labs drawn prior to 2-month return visit: CBC w/ diff, CMP, Vit B12, Iron/TIBC, Folate, D 25-Hydroxy, HbA1C, Thiamine, Zinc. Orders placed .* The patient is encouraged to call the clinic with any questions or concerns in the meantime. The patient demonstrates understanding and is amenable to the above outlined plan. There are no barriers to education today 02/01/2025 Class 3 obesity (ICD-10 - E66.813) 02/01/2025 Other specified personal risk factors, not elsewhere classified (ICD-10 - Z91.89) 11/24/2024 Other specified personal risk factors, not elsewhere classified (ICD-10 - Z91.89) 10/06/2024 Vitamin deficiency, unspecified (ICD-10 - E56.9) - Diet:Tolerating Pureed diet (Bariatric Phase III) without difficultly.Adva nce to Soft diet (Bariatric Phase IV) diet after 2 weeks .- Activity:Patient now permitted to start cardio exercises such as running, elliptical, etc. Okay to start exercise program with weight-training once 4 weeks out from surgery. Okay to return to work if not already returned .- Education:* Continue to follow-up with bariatric learning support services director/catie brown .* Continue previous medications as prescribed. Continue to crush meds for the first 4 weeks post-op; after, may resume regular formulations. Continue to open up omeprazole capsule for first 3 months. Patient advised to see PCP about medication changes .* Instructions given today to start their vitamins. He understands the post-op vitamin requirements: MVI, calcium (1500mg daily), and supplements for any low vitamin levels PRN as determined by labwork. Daily MVI/calcium should include Vit D 5,000IU & Vit B1 100mg .* Patient counseled on behaviors necessary for weight loss: Discussed in detail the post-op diet progression, appropriate eating habits, fluid requirements, and food choices - advancing diet every 2 weeks until reaching stage 4 .* Discussed physical activity expectations: Goal of 10,000 steps/day and 150 active min/wk. First 9 months after surgery is the best time to make headway on weight loss .* Encouraged to attend support groups. Advised patient to see a counselor and/or PCP if mental health concerns arise .* Get labs drawn as ordered. Get radiology as ordered . - Disposition: Return in approximately 6 weeks for 2-month post-op follow-up visit* Patient has been instructed to have labs drawn prior to 2-month return visit: CBC w/ diff, CMP, Vit B12, Iron/TIBC, Folate, D 25-Hydroxy, HbA1C, Thiamine, Zinc. Orders placed .* The patient is encouraged to call the clinic with any questions or concerns in the meantime. The patient demonstrates understanding and is amenable to the above outlined plan. There are no barriers to education today 08/03/2024 Gastro-esophageal reflux disease without esophagitis (ICD-10 - K21.9) 09/01/2024 Essential hypertension (ICD-10 - I10) ESOPHAGOGASTRODU ODENOSCOPY RESULTS: [facility] Patient Name: Shellie Barton Procedure Date: 08/26/2024 Date of : 1990 Attending MD: Alex Gonzales DO, Procedure: Upper GI endoscopy Indications: Heartburn, Preoperative assessment for bariatric surgery to treat morbid obesity Providers: Alex Gonzales DO Referring MD: Medicines: Monitored Anesthesia Care Complications: No immediate complications. Estimated blood loss: Minimal. Procedure: Informed consent was obtained for the procedure, including moderate sedation after risks were discussed. Based on the pre-procedure assessment, including review of the patient's medical history, medications, allergies, and review of systems, the patient was deemed to be an appropriate candidate for sedation. A timeout was performed. Continuous ECG monitoring, pulse oximetry, blood pressure monitoring, and direct observation were performed. The was introduced through the mouth, and advanced to the second part of duodenum. The upper GI endoscopy was accomplished without difficulty. The patient tolerated the procedure well. Estimated Blood Loss: Estimated blood loss was minimal. Findings: The examined esophagus was normal. Localized moderately erythematous mucosa without bleeding was found in the gastric antrum. Biopsies were taken with a cold forceps for Helicobacter pylori testing using CLOtest. Estimated blood loss was minimal. The cardia and gastric fundus were normal on retroflexion. The exam of the stomach was otherwise normal. No gross lesions were noted in the entire examined duodenum. No biopsies or other specimens were collected for this exam. Impression: - Normal esophagus. - Erythematous mucosa in the antrum. Biopsied. - No gross lesions in the entire examined duodenum. No specimens collected. Alex Gonzales DO 08/26/2024 2:02:02 PM 09/01/2024 Chronic depression (ICD-10 - F32.A) ESOPHAGOGASTRODU ODENOSCOPY RESULTS: [facility] Patient Name: Shellie Barton Procedure Date: 08/26/2024 Date of : 1990 Attending MD: Alex Gonzales DO, Procedure: Upper GI endoscopy Indications: Heartburn, Preoperative assessment for bariatric surgery to treat morbid obesity Providers: Alex Gonzales DO Referring MD: Medicines: Monitored Anesthesia Care Complications: No immediate complications. Estimated blood loss: Minimal. Procedure: Informed consent was obtained for the procedure, including moderate sedation after risks were discussed. Based on the pre-procedure assessment, including review of the patient's medical history, medications, allergies, and review of systems, the patient was deemed to be an appropriate candidate for sedation. A timeout was performed. Continuous ECG monitoring, pulse oximetry, blood pressure monitoring, and direct observation were performed. The was introduced through the mouth, and advanced to the second part of duodenum. The upper GI endoscopy was accomplished without difficulty. The patient tolerated the procedure well. Estimated Blood Loss: Estimated blood loss was minimal. Findings: The examined esophagus was normal. Localized moderately erythematous mucosa without bleeding was found in the gastric antrum. Biopsies were taken with a cold forceps for Helicobacter pylori testing using CLOtest. Estimated blood loss was minimal. The cardia and gastric fundus were normal on retroflexion. The exam of the stomach was otherwise normal. No gross lesions were noted in the entire examined duodenum. No biopsies or other specimens were collected for this exam. Impression: - Normal esophagus. - Erythematous mucosa in the antrum. Biopsied. - No gross lesions in the entire examined duodenum. No specimens collected. Alex Gonzales, DO 08/26/2024 2:02:02 PM 08/03/2024 Prediabetes (ICD-10 - R73.03) 10/06/2024 Other specified personal risk factors, not elsewhere classified (ICD-10 - Z91.89) - Diet:Tolerating Pureed diet (Bariatric Phase III) without difficultly.Adva nce to Soft diet (Bariatric Phase IV) diet after 2 weeks .- Activity:Patient now permitted to start cardio exercises such as running, elliptical, etc. Okay to start exercise program with weight-training once 4 weeks out from surgery. Okay to return to work if not already returned .- Education:* Continue to follow-up with bariatric learning support services director/catie brown .* Continue previous medications as prescribed. Continue to crush meds for the first 4 weeks post-op; after, may resume regular formulations. Continue to open up omeprazole capsule for first 3 months. Patient advised to see PCP about medication changes .* Instructions given today to start their vitamins. He understands the post-op vitamin requirements: MVI, calcium (1500mg daily), and supplements for any low vitamin levels PRN as determined by labwork. Daily MVI/calcium should include Vit D 5,000IU & Vit B1 100mg .* Patient counseled on behaviors necessary for weight loss: Discussed in detail the post-op diet progression, appropriate eating habits, fluid requirements, and food choices - advancing diet every 2 weeks until reaching stage 4 .* Discussed physical activity expectations: Goal of 10,000 steps/day and 150 active min/wk. First 9 months after surgery is the best time to make headway on weight loss .* Encouraged to attend support groups. Advised patient to see a counselor and/or PCP if mental health concerns arise .* Get labs drawn as ordered. Get radiology as ordered . - Disposition: Return in approximately 6 weeks for 2-month post-op follow-up visit* Patient has been instructed to have labs drawn prior to 2-month return visit: CBC w/ diff, CMP, Vit B12, Iron/TIBC, Folate, D 25-Hydroxy, HbA1C, Thiamine, Zinc. Orders placed .* The patient is encouraged to call the clinic with any questions or concerns in the meantime. The patient demonstrates understanding and is amenable to the above outlined plan. There are no barriers to education today 11/24/2024 S/P bariatric surgery (ICD-10 - Z98.84) 02/01/2025 S/P bariatric surgery (ICD-10 - Z98.84) 02/01/2025 Postoperative intestinal malabsorption (ICD-10 - K91.2) 08/03/2024 PCOS (polycystic ovarian syndrome) (ICD-10 - E28.2) 10/06/2024 Postoperative intestinal malabsorption (ICD-10 - K91.2) - Diet:Tolerating Pureed diet (Bariatric Phase III) without difficultly.Adva nce to Soft diet (Bariatric Phase IV) diet after 2 weeks .- Activity:Patient now permitted to start cardio exercises such as running, elliptical, etc. Okay to start exercise program with weight-training once 4 weeks out from surgery. Okay to return to work if not already returned .- Education:* Continue to follow-up with bariatric learning support services director/catie brown .* Continue previous medications as prescribed. Continue to crush meds for the first 4 weeks post-op; after, may resume regular formulations. Continue to open up omeprazole capsule for first 3 months. Patient advised to see PCP about medication changes .* Instructions given today to start their vitamins. He understands the post-op vitamin requirements: MVI, calcium (1500mg daily), and supplements for any low vitamin levels PRN as determined by labwork. Daily MVI/calcium should include Vit D 5,000IU & Vit B1 100mg .* Patient counseled on behaviors necessary for weight loss: Discussed in detail the post-op diet progression, appropriate eating habits, fluid requirements, and food choices - advancing diet every 2 weeks until reaching stage 4 .* Discussed physical activity expectations: Goal of 10,000 steps/day and 150 active min/wk. First 9 months after surgery is the best time to make headway on weight loss .* Encouraged to attend support groups. Advised patient to see a counselor and/or PCP if mental health concerns arise .* Get labs drawn as ordered. Get radiology as ordered . - Disposition: Return in approximately 6 weeks for 2-month post-op follow-up visit* Patient has been instructed to have labs drawn prior to 2-month return visit: CBC w/ diff, CMP, Vit B12, Iron/TIBC, Folate, D 25-Hydroxy, HbA1C, Thiamine, Zinc. Orders placed .* The patient is encouraged to call the clinic with any questions or concerns in the meantime. The patient demonstrates understanding and is amenable to the above outlined plan. There are no barriers to education today 11/24/2024 Postoperative intestinal malabsorption (ICD-10 - K91.2) 09/01/2024 History of pulmonary embolus (PE) (ICD-10 - Z86.711) ESOPHAGOGASTRODU ODENOSCOPY RESULTS: [facility] Endoscopy Patient Name: Shellie Barton Procedure Date: 08/26/2024 Date of : 1990 Attending MD: Alex Gonzales DO, Procedure: Upper GI endoscopy Indications: Heartburn, Preoperative assessment for bariatric surgery to treat morbid obesity Providers: Alex Gonzales DO Referring MD: Medicines: Monitored Anesthesia Care Complications: No immediate complications. Estimated blood loss: Minimal. Procedure: Informed consent was obtained for the procedure, including moderate sedation after risks were discussed. Based on the pre-procedure assessment, including review of the patient's medical history, medications, allergies, and review of systems, the patient was deemed to be an appropriate candidate for sedation. A timeout was performed. Continuous ECG monitoring, pulse oximetry, blood pressure monitoring, and direct observation were performed. The was introduced through the mouth, and advanced to the second part of duodenum. The upper GI endoscopy was accomplished without difficulty. The patient tolerated the procedure well. Estimated Blood Loss: Estimated blood loss was minimal. Findings: The examined esophagus was normal. Localized moderately erythematous mucosa without bleeding was found in the gastric antrum. Biopsies were taken with a cold forceps for Helicobacter pylori testing using CLOtest. Estimated blood loss was minimal. The cardia and gastric fundus were normal on retroflexion. The exam of the stomach was otherwise normal. No gross lesions were noted in the entire examined duodenum. No biopsies or other specimens were collected for this exam. Impression: - Normal esophagus. - Erythematous mucosa in the antrum. Biopsied. - No gross lesions in the entire examined duodenum. No specimens collected. Alex Gonzales DO 08/26/2024 2:02:02 PM 08/03/2024 BMI 50.0-59.9, adult (ICD-10 - Z68.43) 02/01/2025 PCOS (polycystic ovarian syndrome) (ICD-10 - E28.2) Plan Of Treatment Pending Test Test Name Order Date ESOPHAGOGASTRODUODENOSCOPY 08/03/2024 IRON, TIBC AND FERRITIN PANEL (5616) IRON, TIBC AND FERRITIN PANEL (5616) IRON, TIBC AND FERRITIN PANEL (5616) 02/2025 COMPREHENSIVE METABOLIC PANEL (32881) COMPREHENSIVE METABOLIC PANEL (48850) COMPREHENSIVE METABOLIC PANEL (31723) CBC (H/H, RBC, INDICES, WBC, PLT) (1759) 02/01/2025 CBC (H/H, RBC, INDICES, WBC, PLT) (1759) 10/06/2024 CBC (H/H, RBC, INDICES, WBC, PLT) (1759) 11/24/2024 HEMOGLOBIN A1c (496) 11/24/2024 HEMOGLOBIN A1c (496) 10/06/2024 HEMOGLOBIN A1c (496) 02/01/2025 VITAMIN B12/FOLATE, SERUM PANEL (7065) 0 02/01/2025 VITAMIN B12/FOLATE, SERUM PANEL (7065) 0 10/06/2024 VITAMIN B12/FOLATE, SERUM PANEL (7065) 0 11/24/2024 TSH (899) 11/24/2024 TSH (899) 10/06/2024 TSH (899) 02/01/2025 VITAMIN D,25-OH,TOTAL,IA (28169) 025 VITAMIN D,25-OH,TOTAL,IA (28690) 025 VITAMIN D,25-OH,TOTAL,IA (89548) 025 ZINC (945) 10/06/2024 ZINC (945) 02/01/2025 ZINC (945) 11/24/2024 VITAMIN B1 (THIAMINE), SERUM/PLASMA, LC/ MS/MS (47841) 10/06/2024 VITAMIN B1 (THIAMINE), SERUM/PLASMA, LC/ MS/MS (79283) 02/01/2025 VITAMIN B1 (THIAMINE), SERUM/PLASMA, LC/ MS/MS (05906) 11/24/2024 Insurance Providers Payer Name Payer Address Payer Phone Subscriber Number Group Number Insured Name Patient Relationship to Insured Coverage Start Date Coverage End Date [facility] [address] [place] [phone] [id number] Jassi Barton Spouse - patient is the spouse of the insured Medical (General) History Medical History History ICD Code anxiety depression Prediabetes PCOS Hypertension pulmonary embolism (09/2022) migraine headaches morbid obesity Surgical History Surgery Date(Month/Year) section tonsillectomy-adenoidectomy Esophagogastroduodenoscopy(E GD) w Alex Gonzales DO at [facility] GI Lab 08/26/2024 Alex Gonzales DO LAPAROSCOPIC GASTRI C BYPASS 09/26/2024
--- OUTSIDE RECORDS SUMMARY | 2025-02-08 09:41 | XMS_ITS | Clinical Summary ---
Author Organization [facility] Address [facility] [place] [address] Care Team Providers Care Agent Ticketing Gate Name Role Phone Santa Mcgovern MD Primary Care Provider [phone] Allergies Active Allergy Reactions Criticality Noted Date [...] # Disposition: Follow up task sent to [facility] scheduling pool. Task also sent for [facility] clinic. Continue routine care. Consider discharge today. [...] had 2 mild range Bps- sent to [facility] for r/o preE and discharged home 10/08/2022 162/84 Plan: - Instructed to present to [facility]/L&D for delivery, rule out preeclampsia Excessive growth [...] anesthesia consult 09/02/2022 - Planning delivery at [facility] for BMI >50 Maternal varicella, non-immune 05/16/2022 11/19/2022 Supervision of high-risk pre gnancy, third trimester 05/16/2022 11/19/2022 Overview (10/08/2022): [x] Co-management [x] Blue Team Email for the [employer] sent 08/07/22 Referring Provider: Dwain Muhammad [phone] [] or Medicare Insurance [x] Dating Criteria: [...] will discuss dates with partner and notify MFM RN -scheduled for 10/19 at 8pm, letter sent - bnw [x] Place of delivery: [facility] [] Last clinic visit SVE: [] IOL start agent: [] Epidural: [] Consents signed: [] MOC: [] Method of feeding: [] Reel Film Inspector: [] PP Depression Discussed: Anxiety disorder affecting p regnancy, antepartum 05/16/2022 11/19/2022 Immunizations Immunization Administration Dates Next Due Tdap 03/06/2008 Surgical History Surgery Date Site/Laterality Comments TONSILLECTOMY/ADENOIDECTOMY Medical History Medical History Date Comments Migraine headache Obesity, morbid, BMI 40.0-49.9 ([facility]) Family History Medical History Relation Name Comments Arthritis Father Arthritis Mother Diabetes Mother Alive and well; Hypertension Mother Arthritis Sister Mental illness Sister Scoliosis Sister Relation Name Status Comments Father Alive Mother Alive Sister Social History Tobacco Use Types Packs/Day Years [...] week 10/13/2022 How often do you attend [facility] Flypaper or adventism services? Never 10/13/2022 Do you belong to [...] place to sleep or slept in a care home (including now)? 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 - [employer] Not on file Not on f ile Not on file Obstetrics History Para Term AB IAB SAB Ectopic Multiple Livin g Live Births 1 1 1 0 0 0 0 0 0 1 1 Date Outcome GA Total Labor Labor/2nd/3rd Weight Sex Type Anes PTL Mariann A1 A5 Name Clin 2022 Term 37w 5d 0h 02m 0h 02m 3.97 kg (8 lb 12 oz) F C-Sec tion Epidur al N Livin g 8 8 SHOONEIDA CISNEROS, GIRLV ICTOR DANUTA Bishop, Rachael Sykes MD Complications:Rupture of Mem branes > 18 hours,Pre eclampsia,Failure to Progress in Second Stage Delivery Location:[facility] Main C ampus ([facility] L AND D PROCEDURE) Last Filed Vital Signs Vital Sign Reading Time Taken Comments Blood Pressure 129/90 06/04/2023 10:34 AM CULTURE MANAGER Pulse 116 11/19/2022 11:39 AM CDT Temperature 36.6 C (97.8 F) 11/03/2022 5:51 PM CDT Respiratory Rate 16 11/03/2022 5:51 PM CDT Oxygen Saturation 98% 11/19/2022 11:39 AM CDT Inhaled Oxygen Concentration - - Weight 142.4 kg (314 lb) 06/04/2023 10:34 AM CULTURE MANAGER Height 162.6 cm (5' 4) 06/04/2023 10:34 AM CULTURE MANAGER Body Mass Index 53.9 06/04/2023 10:34 AM CULTURE MANAGER Plan of Treatment Health Maintenance Due Date Last Done Comments Cervical Cancer Screening 1992 Varicella Vaccines (1 of 2 - 13+ 2-dose series) 2005 Hepatitis B Screening 2010 Regular Well Visit/Exam 18-64 2010 DTaP/Tdap/Td Vaccine (2 - Td or Tdap) 03/06/2018 03/06/2008 Depression Screening 11/20/2023 11/19/2022 Covid-19 Vaccine (3 - 2023-2 5 season) 2024 10/22/2020, 09/30/2020 Influenza Vaccine (#1) 2025 , 04/13/2020 Hepatitis C Screening Completed 04/03/2022 HPV Vaccines Aged Out No longer eligi ble based on patient's age to complete this topic Pneumococcal vaccine <65 Aged Out No longer eligible based on patient's age to complete this topic Procedures Procedure Name Priority Date/Time Associated Diagnosis Comments HEPATITIS C ANTIBODY Routine 04/03/2022 from Last 3 Months or Most Recently Relevant to Health Maintenance Results * Hepatitis C antibody (04/03/2022) SCRIBED HCV ab negative Blood Dwain Muhammad MD LAB MICROBIOLOGY - GEN ERAL ORDERABLES Final Result from Last 3 Months or Most Recently Relevant to Health Maintenance Insurance [facility] CHOICE [facility] CHO[facility] PLUS [facility] ACCESS CHOICE Advance Directives For more information, please contact: [phone] * Full Code (Latest Code Status on File) Date Activated Date Inactivated Comments 10/10/2022 9:05 PM 10/14/2022 4:44 PM * Full Code Date Activated Date Inactivated Comments 10/08/2022 5:27 PM 10/10/2022 9:05 PM Full CPR in case of cardiopulmonary arrest Care Teams Agent Ticketing Gate Relationship Specialty Start Date End Date Santa Mcgovern MD PCP - General Internal Medicine 06/21/18
--- NOTE | 2025-02-08 09:47 | ED_ITS ---
HPI - URI/Sore Throat General Chief Complaint: Skin/Abscess/Foreign Body Stated Complaint: Rash/Sore Throat Time Seen by Provider: 02/08/25 09:47 History of Present Illness HPI Narrative: 34-year-old female presented for complaint of sore throat, mouth pain, and lesions to both hands. Onset yesterday. 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 Denies cough, n/v/d/f/c. Related Data Home Medications ?Medication ?Instructions ?Recorded ?Confirmed ?Last Taken ?Type fluoxetine 20 mg capsule (Prozac) 20 mg PO DAILY 10/06/23 08/22/24 Unknown History Allergies Allergy/AdvReac Type Severity Reaction Status Date / Time Penicillins Allergy Severe Anaphylaxis Verified 02/08/25 09:46 codeine Allergy Intermediate Insomnia Verified 02/08/25 09:46 Review of Systems Review of Systems: CONSTITUTIONAL: Denies body aches, fever, chills, or sweats. EYES: Denies visual changes, redness, or discharge. ENT: reports sore throat Denies rhinorrhea, congestion, or otalgia. CARDIOVASCULAR: Denies chest pain, palpitations, or edema. RESPIRATORY: Denies dyspnea. GASTROINTESTINAL: Denies abdominal pain, nausea, vomiting, or diarrhea. SKIN: reports rash NEUROLOGIC: Denies headache PMFSH Past Medical History Medical History (Updated 02/08/25 @ 09:55 by Beverley Mitchell APRN) Migraine Anxiety Allergies Family History Family History (Updated 10/06/23 @ 14:16 by Beatrice Pantoja MA) Father History of ETOH abuse Hypertension Depression Mother Diabetes mellitus Heart disease Hypertension Disorder of thyroid Sibling Asthma Diabetes mellitus Depression Grandparent Diabetes mellitus Heart disease Hypertension Grandparent History of ETOH abuse Hypertension Cerebrovascular accident Social History Social History (Updated 10/06/23 @ 14:19 by Beatrice Pantoja MA) Smoking status: Never smoker Alcohol intake: current Alcohol use details: Wine Substance use type: does not use Lack of Transportation: No Lack of Food: Never True Current Housing: I Have Housing Concerned About Future Housing: No Difficulty Paying Gas/Electric Bills: No Difficulty Paying for Meds: No Currently Unemployed: No Education: Bachelor's Degree Difficulty w/ Childcare or Family Care: No Living arrangements: with family Gender identity (if verbalized by the patient): Female Agree to blood products: Yes Exam Narrative: GENERAL: well-appearing, no acute distress. EYES: conjunctivae clear ENT: Mucous membranes moist. TM pearly fisher with normal light reflex bilaterally; no tragal tenderness. Oropharynx not erythematous, scattered erythematous lesions noted to bilateral oral mucosa c/w HFMD. Tonsils absent. No drooling, no hoarseness, no trismus, uvula midline. No tripod positioning, hot potato voice, or soft palate swelling. NECK: Supple. No lymphadenopathy CHEST: Clear to auscultation, breath sounds equal. No respiratory distress, speaks in full sentences. HEART: Regular rate and rhythm. No murmur heard. SKIN: Warm, dry, scattered erythematous papules to palms of hands. NEURO: Alert and oriented x3. Course Course Emergency Course: Patient is aware of diagnosis, understands and agrees to treatment plan. Anticipatory guidance given. Patient agrees to follow-up as directed and is aware of reasons to seek care at the emergency department. Portions of this record may have been created with voice recognition software Level of Care: Express Care Visit Vital Signs Vital signs: Vital Signs Temperature 98.5 F 02/08/25 09:34 Pulse Rate 75 02/08/25 09:34 Respiratory Rate 18 02/08/25 09:34 Blood Pressure 111/75 02/08/25 09:34 Pulse Oximetry 100 02/08/25 09:34 Oxygen Delivery Room Air 02/08/25 09:34 Temperature 98.5 F 02/08/25 09:34 Pulse Rate 75 02/08/25 09:34 Respiratory Rate 18 02/08/25 09:34 Blood Pressure 111/75 02/08/25 09:34 Pulse Oximetry 100 02/08/25 09:34 Oxygen Delivery Room Air 02/08/25 09:34 MDM - URI/Sore Throat MDM Narrative Medical decision making narrative: discussed physical exam findings consistent with HFMD lesions to the oral mucosa. Reviewed RX, Advise supportive treatments. Patient is appropriate for outpatient treatment and follow-up. Differential Diagnosis Differential diagnosis: Likely upper respiratory infection, viral infection and pharyngitis Discharge Plan Discharge Clinical Impression: Hand, foot and mouth disease Patient Disposition: Home Condition: Stable Instructions: Hand, Foot, and Mouth Disease (ED) Additional Instructions: The condition is spread by direct contact with saliva or mucus. Symptoms include fever, sore throat, feeling unwell, irritability, and loss of appetite. The virus usually clears up on its own within 10 days. Pain medications help relieve symptoms. Alternate Tylenol and ibuprofen. Push fluids Avoid foods that irritate your mouth. These may include nuts, chips, pretzels, certain spices, salty foods and acidic fruits, such as pineapple, grapefruit and oranges. Follow up with your primary care provider as needed in 1 week Go to the ER for worsening symptoms or concerns Patient Language: South African Prescriptions: New dexamethasone 0.5 mg/5 mL elixir 0.5 mg PO QID Qty: 237 0RF Rx Instructions: dexamethasone elixir as directed: 5 mL swish and spit four times daily. keep the medication in the mouth for one minute prior to spitting it out. Do not rinse afterward and avoid eating or drinking for 30 minutes lidocaine HCl [Lidocaine Viscous] 2 % solution 1 applic mucous membrane TID PRN (Reason: pain) Qty: 100 0RF Rx Instructions: apply with cotton swab to site of pain No Action fluoxetine [Prozac] 20 mg capsule 20 mg PO DAILY bupropion HCl 150 mg tablet extended release 24 hr See Rx Instructions .ROUTE .COMPLEX Qty: 90 1RF Dose Instruction: TAKE 1 TABLET BY MOUTH EVERY DAY IN THE MORNING Rx Instructions: TAKE 1 TABLET BY MOUTH EVERY DAY IN THE MORNING Follow-up/Referrals: Esha Lion APRN [Primary Care Provider] - Stand Alone Forms: Work/School Release IP Time of Disposition: 09:57
== END 2025-02-08 10:00 | disposition home or self-care (01) ==
PROVIDERS: Emergency Provider Nurse Practitioner Family; PCP Nurse Practitioner Adult Health
DX: B08.4 Enteroviral vesicular stomatitis with exanthem (principal); F41.9 Anxiety disorder, unspecified
CPT/HCPCS: 99213; G0463